=== PATIENT | male | born 1985 | race Two or more races ===

== ENCOUNTER 2019-03-10 11:53 | Emergency (ER) | payer MEDICAID ==
[~2019-03-10] VITALS: Ht 172.7 cm; Wt 93.0 kg
[~2019-03-10 11:53] MED LIST: BACTRIM-DS1 EA ORAL; CLINDAMYCIN HC300 MG ORAL; IBUPROFEN600 MG ORAL; NKM; VICODIN 5-5001 EACH ORAL
[2019-03-10 12:06] VITALS: BP 135/73
--- NOTE | 2019-03-10 12:14 | NUR ---
ED Nurse Note: PT WALKED IN C/O RT ARM NUMBNESS AND WEAKNESS DENIES AND HEADACHE OR STIFF NECK AT THIS TIME BUT STATES IT HAPPENS IN THE MORNINGS FOR THE PAST 2 DAYS. PT AWAITING ERMD EVAL NO NSG ORDERS WILL MONITOR.
[2019-03-10] MEDS ORDERED: IBUPROFEN600 MG ORAL (12:31)
[2019-03-10] MEDS ORDERED: ROBAXIN-750750 MG PO (12:31)
--- NOTE | 2019-03-10 12:32 | Emergency Room Report ---
History of Present Illness General Chief Complaint: Headache Source: Patient Present Illness HPI Disclaimer: Please note that this report is being documented using DRAGON technology. This can lead to erroneous entry secondary to incorrect interpretation by the dictating instrument. HPI: 34-year-old otherwise healthy male presents for evaluation of headache, neck stiffness and paresthesias down the right arm. He notes tingling but not specifically numbness over the ulnar side of the forearm. No tingling over the bicep or over the radial side of the forearm or hand. He notes tingling over the right pinky finger with retained motion and strength. Noted neck stiffness in the morning that is now resolved. No longer complaining of headache. Has been happening over the past 2 days. No injury. No weakness, no pain. No other symptoms. Denies nausea, chest pain, shortness of breath, diarrhea, urinary symptoms PMH: Denies PSH: Denies Allergies: Denies Social Hx: Denies alcohol, drug or tobacco use Allergies: Coded Allergies: No Known Allergies (Unverified , 11/29/12) Nursing Documentation-PMH Past Medical History: No Stated History Review of Systems All Other Systems: negative except mentioned in HPI Physical Exam Vital Signs Date Time Temp Pulse Resp B/P (MAP) Pulse Ox O2 Delivery O2 Flow Rate FiO2 03/10/19 11:56 99.0 66 16 135/73 (93) 98 Room Air General: Awake and alert, no acute distress HEENT: NC/AT. EOMI. PERRLA. No nystagmus. Facial expressions are symmetrical. No facial droop. Cardiovascular: RRR. S1 and S2 normal. No murmur appreciated Resp: Normal work of breathing. No cough, wheezing or crackles appreciated Skin: Intact. No abrasions, laceration or rash over the exposed skin MSK: Normal tone and bulk. Moving all extremities. No obvious deformity. There is no drift in the upper or lower extremities bilaterally. Strength is 5/ 5 at the shoulders, elbows, wrists and digits of the hands bilaterally. Neuro: Awake and alert. Mentating appropriately. Facial expression symmetrical. No dysarthria, no ataxia on [id number] or [id number] testing. Sensation to light touch is intact over the upper extremities. The patient has intact speech with good repetition, comprehension. Fund of knowledge is full. No aphasia, no neglect. Back/spine: No step-off, deformity or tenderness in the cervical, thoracic or lumbosacral spine. There is some spinal tenderness in the cervical region bilaterally though right is worse than left as well as tenderness over the right trapezius. NIH: 0 Medical Decision Making Diagnostic Impression: Primary Impression: Peripheral nerve dysfunction Additional Impression: Cervical paraspinal muscle spasm ER Course 34 old male presents for evaluation of neck stiffness, headache and paresthesias in the right upper extremity. There is no change in strength, the patient's neuro exam is intact and subjectively has intact sensation bilaterally. He is noting subjective paresthesias over the distribution of C8 and T1 on the right side. There is also tenderness in the right paracervical regions consistent with spasm. This appears to be a peripheral nerve issue, likely secondary to the spasm and possible pinched nerve. Patient will be given muscle relaxers and anti-inflammatories and discharge with outpatient follow-up. I do not believe he requires emergent imaging or lab work in the emergency department we discussed reasons to return to the ER. Patient understands and agrees with the treatment plan will be discharged home. Last Vital Signs Date Time Temp Pulse Resp B/P (MAP) Pulse Ox O2 Delivery O2 Flow Rate FiO2 03/10/19 12:06 99.0 16 135/73 98 Room Air 03/10/19 11:56 66 Disposition: HOME, SELF-CARE Condition: Stable Scripts Ibuprofen* (MOTRIN*) 600 Mg Tablet 600 MG ORAL Q6H PRN for For Pain, #30 TAB 0 Refills Prov: Mic Howell MD 03/10/19 Methocarbamol* (ROBAXIN-750*) 750 Mg Tablet 750 MG PO QID, #28 TAB 0 Refills Prov: Mic Howell MD 03/10/19 Referrals: NOT CHOSEN IPA/,REFERRING (PCP) [facility] Patient Instructions: Pinched Nerve, Spasticity Additional Instructions: You are treated in the emergency department today for headache, neck pain and arm tingling. Likely, you are experiencing pain from a spasm in the neck causing a pinched nerve and tingling down your arm. If you have sudden weakness , worsening tingling or numbness of the arm, inability to move the arm, develop pain, severe headaches, fevers, difficulty speaking, or any other sudden severe symptoms he must return to emergency department immediately. Otherwise, he will be prescribed a muscle relaxant for the neck spasm and can follow-up as an outpatient at 1 of the clinics listed here in your discharge paperwork. Return to the emergency department any new or worsening symptoms. Mic Howell MD Mar 10, 2019 12:32
[2019-03-10 12:35] VITALS: BP 138/73
--- NOTE | 2019-03-10 12:39 | NUR ---
ER DISCHARGE NOTE: Patient is cleared to be discharged per ERMD, pt is aox4, on room air, with stable vital signs. pt was given dc and prescription instructions, pt was able to verbalize understanding, pt id band removed without complications. pt is able to ambulate with steady gait. pt took all belongings.
== END 2019-03-10 12:38 | disposition home or self-care (01) ==
LOC: EMR 12:22
DX: G56.81 Other specified mononeuropathies of right upper limb (principal); M62.830 Muscle spasm of back
CPT/HCPCS: 99282